=== PATIENT | female | born 1980 | race Caucasian/White ===

== ENCOUNTER 2017-04-22 19:39 | Emergency (ER) | payer MEDICAID, OTHER ==
[~2017-04-22] VITALS: Ht 152.4 cm; Wt 54.5 kg
[2017-04-22 20:06] VITALS: Ht 152.4 cm; Wt 54.5 kg
--- NOTE | 2017-04-22 23:41 | ERD ---
ER Documentation Chief Complaint Date/Time DATE: 04/22/17 TIME: 22:42 Chief Complaint pelvic pain and vaginal bleeding since saturday HPI 37-year-old female who presents to the emergency department for pelvic pain and vaginal bleeding since this morning. LMP: 03/25/2017. A0. Denies headache, dizziness, blurry vision, neck pain, shoulder pain, chest pain , back pain, nausea, vomiting, constipation, diarrhea, loss of bowel bladder control, , possibility of being , dysuria, recent exposure to any illness, being sexually active, vaginal discharge, recent long travel, recent antibiotic use the last 3 months, trauma, numbness or tingling sensation , fever, chills. No known drug allergies. No past medical history. No surgical history. Does not take any prescription medication at home. 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 Denies smoking, use of alcoholic beverages, use of illegal drugs. ROS All systems reviewed and are negative except as per history of present illness. Medications Home Meds Active Scripts Acetaminophen* (Tylophen*) 500 Mg Capsule, 1 CAP PO Q6H Y for PAIN AND OR ELEVATED TEMP, #20 CAP Prov:ABDULAZIZ GOODEAR F 04/23/17 Ibuprofen* (Motrin*) 600 Mg Tab, 600 MG PO Q8, #20 TAB Prov:RAINILABAN,ABDULAZIZAR F 04/23/17 Cephalexin* (Keflex*) 500 Mg Capsule, 500 MG PO QID for 5 Days, CAP Prov:PASILABAN,ABDULAZIZAR F 04/23/17 Ferrous Sulfate* (Ferrous Sulfate*) 325 Mg Tabec, 325 MG PO DAILY, #30 TAB Prov:RAINALIVIAABDULAZIZAR F 04/23/17 PMhx/Soc Medical and Surgical Hx: pt denies Medical Hx, pt denies Surgical Hx Hx Alcohol Use: No Hx Substance Use: No Hx Tobacco Use: No Smoking Status: Never smoker Physical Exam Vitals Vital Signs Date Time Temp Pulse Resp B/P Pulse Ox O2 Delivery O2 Flow Rate FiO2 04/23/17 02:04 82 16 117/63 100 Room Air 04/22/17 20:06 98.8 94 18 117/57 100 Physical Exam Const: [] Head: Atraumatic Eyes: Normal Conjunctiva ENT: Normal External Ears, Nose and Mouth. Neck: Full range of motion..~ No meningismus. Resp: Clear to auscultation bilaterally Cardio: Regular rate and rhythm, no murmurs Abd: Soft, non tender, non distended. Normal bowel sounds. Pelvic tenderness. No CVA tenderness. Patient is refusing pelvic exam. Skin: No petechiae or rashes Back: No midline or flank tenderness Ext: No cyanosis, or edema Neur: Awake and alert Psych: Normal Mood and Affect Result Diagram: 04/22/17 7678 04/22/17 2200 Results 24 hrs Laboratory Tests Test 04/22/17 22:00 04/22/17 23:40 04/22/17 23:50 04/22/17 23:55 Sodium Level 138mmol/L Potassium Level 3.6mmol/L Chloride Level 107mmol/L Carbon Dioxide Level 24mmol/L Anion Gap 11 Blood Urea Nitrogen 7mg/dl Creatinine 0.60mg/dl Glucose Level 96mg/dl Calcium Level 8.8mg/dl Total Bilirubin 0.2mg/dl Direct Bilirubin 0.00mg/dl Indirect Bilirubin 0.2mg/dl Aspartate Amino Transf (AST/SGOT) 19IU/L Alanine Aminotransferase (ALT/SGPT) 28IU/L Alkaline Phosphatase 74IU/L Total Protein 6.6g/dl Albumin 3.3g/dl Globulin 3.30g/dl Albumin/Globulin Ratio 1.00 Amylase Level 41U/L Lipase 106U/L Urine Color YELLOW Urine Clarity SLIGHTLY CLOUDY Urine pH 6.0 Urine Specific [place] 1.020 Urine Ketones NEGATIVEmg/dL Urine Nitrite NEGATIVEmg/dL Urine Bilirubin NEGATIVEmg/dL Urine Urobilinogen NEGATIVEmg/dL Urine Leukocyte Esterase 1+Ck/ul Urine Microscopic RBC 1/HPF Urine Microscopic WBC 49/HPF Urine Bacteria FEW/HPF Urine Mucus FEW/HPF Urine Hemoglobin 2+mg/dL Urine Glucose NEGATIVEmg/dL Urine Total Protein NEGATIVEmg/dl Serum HCG, Qualitative NEGATIVE White Blood Count 6.610^3/ul Red Blood Count 3.5510^6/ul Hemoglobin 9.5g/dl Hematocrit 29.9% Mean Corpuscular Volume 84.2fl Mean Corpuscular Hemoglobin 26.8pg Mean Corpuscular Hemoglobin Concent 31.8g/dl Red Cell Distribution Width 14.6% Platelet Count 27320^3/UL Mean Platelet Volume 9.3fl Neutrophils % 54.8% Lymphocytes % 35.4% Monocytes % 6.3% Eosinophils % 2.7% Basophils % 0.5% Nucleated Red Blood Cells % 0.0/100WBC Neutrophils # 3.610^3/ul Lymphocytes # 2.410^3/ul Monocytes # 0.410^3/ul Eosinophils # 0.210^3/ul Basophils # 0.010^3/ul Nucleated Red Blood Cells # 0.010^3/ul Prothrombin Time 13.0Sec Prothrombin Time Ratio 1.0 INR International Normalized Ratio 0.98 Activated Partial Thromboplast Time 29.7Sec Current Medications Medications (Trade) Dose Ordered Sig/Deb Route PRN Reason Start Time Stop Time Status Last Admin Dose Admin Acetaminophen/ Hydrocodone Bitart ([place] ()) 1 tab ONCE ONCE PO 04/23/17 01:30 04/23/17 01:31 DC 04/23/17 02:03 Procedures/MDM 37-year-old female who presents to the emergency department for pelvic pain and vaginal bleeding since this morning. LMP: 03/25/2017. A0. Denies headache, dizziness, blurry vision, neck pain, shoulder pain, chest pain , back pain, nausea, vomiting, constipation, diarrhea, loss of bowel bladder control, , possibility of being , dysuria, recent exposure to any illness, being sexually active, vaginal discharge, recent long travel, recent antibiotic use the last 3 months, trauma, numbness or tingling sensation , fever, chills. No known drug allergies. No past medical history. No surgical history. Does not take any prescription medication at home. 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 Denies smoking, use of alcoholic beverages, use of illegal drugs. Physical exam: Pelvic tenderness. No CVA tenderness. Patient is refusing pelvic exam. Disease process was explained to the patient and family member. They both verbalized understanding and agreed with the diagnostic test, treatment, plan of care. POC urine : Negative. Urinalysis: Reviewed. Culture urine: Sent. Pelvic ultrasound: Thick heterogeneous endometrium without internal color flow. In this clinical setting of vaginal bleeding, this could represent blood clot. Recommend correlation with serum beta HCG to rule out or ectopic . Evaluation for an underlying lesion such as a polyp, fibroid or other mass is limited in the setting of vaginal bleeding. Spoke with labor wrist bow maker production, Dr. Jenkins, who recommends to discharge the patient and Treatment: [place]. Reevaluation: Denies headache, dizziness, blurred vision, neck pain, shoulder pain, chest pain, back pain, abdominal pain, pelvic pain, vaginal bleeding. No episode of emesis in the emergency department. Skin appearance is within normal limits. No signs of skin tenting or dehydration. Differential diagnosis: Hemorrhage versus pelvic inflammatory disease versus metrorrhagia versus dysfunctional uterine bleeding Final diagnosis: Dysfunctional uterine bleeding Prescription: Iron sulfate. Motrin. Tylenol. Follow-up with primary care physician the next 24-48 hours. Follow-up with staffing administrator in the next 24-48 hours. Come back in the emergency department for any new symptoms or any worsening of symptoms. All questions and concerns were answered. Patient verbalized understanding and agreed with the plan of care. Hemodynamically stable on discharge. Departure Diagnosis: Primary Impression: Dysfunctional uterine bleeding Condition: Stable Additional Instructions: Follow-up with primary care physician the next 24-48 hours. Follow-up with staffing administrator in the next 24-48 hours. Come back in the emergency department for any new symptoms or any worsening of symptoms. All questions and concerns were answered. Patient verbalized understanding and agreed with the plan of care. PARDEEP GOODE Apr 22, 2017 23:41
--- NOTE | 2017-04-23 00:14 | RADRPT ---
PROCEDURE: ULTRASOUND EVALUATION OF THE FEMALE PELVIS: CLINICAL INDICATION: 37 years of age, female. Vaginal bleeding and pelvic pain . TECHNIQUE: Real-time sonographic images of the pelvis were obtained transabdominally and transvagina lly utilizing garcia scale, color, and Doppler imaging. COMPARISON: None available. FINDINGS: LMP: March 25, 2017 Uterus: Appearance: Normal. Position: Anteverted Size: 8.6 x 4.3 x 5.3 cm. (Volume 103 mL) Endometrial stripe: 1.7 cm. Thick and heterogeneous echogenicity without internal color flow. Right ovary and adnexa: Size: 2.1 x 1 x 1.3 cm. (Volume 1.4 mL) Appearance: Normal morphology. No masses. Color flow is present Left ovary and adnexa: Size: 1.4 x 2.6 x 2 cm. (Volume 3.7 mL) Appearance: Normal morphology. No masses. Arterial flow is present Free fluid: None. IMPRESSION: Thick heterogeneous endometrium without internal color flow. In this clinical setting of vaginal ble eding, this could represent blood clot. Recommend correlation with serum beta HCG to rule out pregna ncy or ectopic . Evaluation for an underlying lesion such as a polyp, fibroid or other mass is limited in the setting of vaginal bleeding. Findings were discussed with Ashish Mitchell JOURNAL BOX INSPECTOR by Dr. Keila Virk on April 23, 2017 at 12:10 a.m .. RPTAT: HCTS Physician Klarissa Date Time Electronically viewed and signed by Physician Klarissa on 04/23/2017 00:14 CS/
[2017-04-23 00:16] LABS: ADD UMIC YES; UR ASCORBIC ACID 20 mg/dL (NEGATIVE); UR BACTERIA FEW /HPF (NONE SEEN); UR BILIRUBIN (Dip) NEGATIVE (NEGATIVE); UR BLOOD (Dip) 2+ mg/dL (NEGATIVE); UR CLARITY SLIGHTLY CLOUDY (CLEAR); UR COLOR YELLOW (YELLOW); UR GLUCOSE (Dip) NEGATIVE (NEGATIVE); UR KETONES (Dip) NEGATIVE (NEGATIVE); UR LEUKOCYTE ESTERASE (Dip) 1+ Leu/ul (NEGATIVE); UR MUCUS FEW /HPF (NONE SEEN); UR NITRITE (Dip) NEGATIVE (NEGATIVE); UR RBC 1 /HPF (0-5); UR TOTAL PROTEIN (Dip) NEGATIVE (NEGATIVE); UR UROBILINOGEN (Dip) NEGATIVE (NEGATIVE)
[2017-04-23 00:50] LABS: BASOPHILS % 0.5 % (0.0-2.0); EOSINOPHILS # 0.2 10^3/ul (0.0-0.5); EOSINOPHILS % 2.7 % (0.0-7.0); HEMATOCRIT 29.9 % (37.0-47.0); HEMOGLOBIN 9.5 g/dl (12.0-16.0); LYMPHOCYTES # 2.4 10^3/ul (0.8-2.9); LYMPHOCYTES % 35.4 % (15.0-51.0); MEAN CORPUSCULAR HEMOGLOBIN 26.8 pg (29.0-33.0); MEAN CORPUSCULAR HGB CONC 31.8 g/dl (32.0-37.0); MEAN CORPUSCULAR VOLUME 84.2 fl (82.0-101.0); MEAN PLATELET VOLUME 9.3 fl (7.4-10.4); MONOCYTE # 0.4 10^3/ul (0.3-0.9); MONOCYTES % 6.3 % (0.0-11.0); NEUTROPHIL # 3.6 10^3/ul (1.6-7.5); NEUTROPHILS % 54.8 % (39.0-77.0); PLATELET COUNT 332 10^3/UL (140-415); RED BLOOD COUNT 3.55 10^6/ul (4.20-5.40); RED CELL DISTRIBUTION WIDTH 14.6 % (11.5-14.5); WHITE BLOOD COUNT 6.6 10^3/ul (4.8-10.8)
[2017-04-23 01:07] LABS: INR 0.98; PARTIAL THROMBOPLASTIN TIME 29.7 Sec (25.0-35.0)
[2017-04-23 01:28] LABS: ALBUMIN 3.3 g/dl (3.3-4.9); BILIRUBIN,INDIRECT 0.2 mg/dl (0-1.1); BILIRUBIN,TOTAL 0.2 mg/dl (0.2-1.3); CALCIUM 8.8 mg/dl (8.4-10.2); CREATININE 0.6 mg/dl (0.44-1.00); POTASSIUM 3.6 mmol/L (3.5-5.1); TOTAL PROTEIN 6.6 g/dl (6.1-8.1)
[2017-04-23] MEDS ORDERED: HYDROCODONE/APAP (10/325) TAB PO ONE (01:30)
[2017-04-23] MEDS ORDERED: FER325 PO (01:42)
[2017-04-23] MEDS ORDERED: CEPH-443 PO (01:42)
[2017-04-23] MEDS ORDERED: IBUP-1542 PO (01:42)
[2017-04-23] MEDS ORDERED: ACET500C5 PO (01:44)
[2017-04-23 02:04] VITALS: BP 117/63; PULSE 82; RESP 16
--- NOTE | 2017-04-26 18:46 | EN ---
Date/Time of Note Date/Time of Note DATE: 04/26/17 TIME: 18:34 ER Progress Note I called the patient to [phone] for follow up and notify the results of the urine culture. The patient needs to start Ciprofloxacin 250mg bid for 5 days. RUN DATE: 04/25/17 [facility] PAGE 1 RUN TIME: [id number] [place] [address] Saul Mcduffie M.D. Re Dye Hand JESUS#: [id number] Name: GUERA PARR Age/Sex: 37/F Attend Dr: LAZARO SAUNDERS MD Acct: [id number] MR# : [id number] : 1980 Location: [facility] Admit: 04/22/17 Specimen: [id number] Status: Complete Jhonny: 04/22/17 Rcvd: 04/22 Source: [facility] Descrip: Procedure Result Microbiology URINE CULTURE Final Organism 1 PROTEUS MIRABILIS COLONY COUNT >100,000 CFU/ml P. MIRAB M.I.C. RX --------- --- AMPICILLIN <=2 S CEFOTAXIME S CIPROFLOXACIN <=0.25 S GENTAMICIN <=1 S LEVOFLOXACIN <=0.12 S NITROFURANTOIN R TOBRAMYCIN <=1 S TRIMETHOPRIM/SULFAMETHOXAZOLE <=20 S ................................................................................ ............ Flags: Critical Hi = *H Critical Lo = *L Microbiology Abnormal = * Abnormal Hi = H Abnormal Lo = L Blood Bank Abnormal = * Susceptability Flags: S = Sensitive R = Resistant I = Intermediate END OF REPORT EFRAIN VINCENT MD Apr 26, 2017 18:44
== END 2017-04-23 02:36 | disposition home or self-care (01) ==
LOC: FTE 19:39
DX: N93.8 Other specified abnormal uterine and vaginal bleeding (principal)
CPT/HCPCS: 36415; 76830; 76856; 80053; 81001; 82150; 83690; 84703; 85025; 85610; 85730; 87086; Z7502; Z7610

== ENCOUNTER 2017-05-02 21:32 | Emergency (ER) | payer SELFPAY ==
[~2017-05-02] VITALS: Ht 162.6 cm; Wt 53.5 kg
[~2017-05-02 21:32] MED LIST: ACET500C5 PO; CEPH-443 PO; CIPR500T4 PO; FER325 PO; IBUP-1542 PO
[2017-05-02 21:44] VITALS: Ht 162.6 cm; Wt 53.5 kg
== END 2017-05-02 23:18 | disposition left against medical advice (07) ==
LOC: FTE 21:32
DX: Z53.21 Procedure and treatment not carried out due to patient leaving prior to being seen by health care provider (principal)